=== PATIENT | female | born 1990 | race Caucasian/White ===

== ENCOUNTER 2022-12-05 07:20 | Outpatient (CLI) | payer OTHER, SELFPAY ==
--- NOTE | 2022-12-05 07:15 | CRLHL7_ITS ---
For Patients: As a result of the Century Cures Act, medical imaging exams and procedure reports are released immediately into your electronic medical record. You may view this report before your referring provider. If you have questions, please contact your health care provider. INDICATION: First trimester scan, establish dates. COMPARISON: None. TECHNIQUE: Real-time fuller-scale imaging of the pelvis was performed. FINDINGS: Sonographic imaging demonstrates a single living intrauterine gestation. The embryo demonstrates a regular cardiac rate measuring 171 beats per minute. The embryo`s crown-rump length measurement of 4.4 cm corresponds to a gestational age of 11 weeks 1 day with a sonographic due date of 06/25/2023. There is a normal-appearing yolk sac. There are no gross abnormalities noted within the embryo at this early state of development. The gestational sac has a normal appearance. There is a left fundal perigestational hemorrhage measuring 2.1 x 1.5 x 1.1 cm. The amount of fluid within the sac appears appropriate for gestational age. The cervix is closed. The myometrium appears normal. The ovaries are of normal size. Corpus luteal cyst right ovary. There are no suspicious fluid collections noted in the cul-de-sac. IMPRESSION: Single living intrauterine with sonographic gestational age 11 weeks 1 day and sonographic due date 06/25/2023. Left fundal subchorionic hemorrhage measuring 2.1 x 1.5 x 1.1 cm. Dictated by Tono Awad MD @ 12/05/2022 9:52:48 AM (Electronically Signed)
== END 2022-12-05 07:21 | disposition home or self-care (01) ==
LOC: US 07:20
PROVIDERS: Visit Provider Physician Assistant
DX: Z34.91 Encounter for supervision of normal pregnancy, unspecified, first trimester (principal); Z3A.11 11 weeks gestation of pregnancy
CPT/HCPCS: 76801; 86703; 86803; 86850; 86900; 86901; 87086; 87340; 87491; 87591

== ENCOUNTER 2022-12-05 08:20 | Outpatient (CLI) | payer OTHER, SELFPAY ==
[2022-12-05 12:18] LABS: Chlamydia DNA Amplified* NOT DETECTED (No Detected); GC DNA Amplified* NOT DETECTED (No Detected)
== END 2022-12-05 08:21 | disposition home or self-care (01) ==
PROVIDERS: Visit Provider Physician Assistant
DX: Z34.91 Encounter for supervision of normal pregnancy, unspecified, first trimester (principal); O20.9 Hemorrhage in early pregnancy, unspecified; Z3A.11 11 weeks gestation of pregnancy
CPT/HCPCS: 86592; 86703; 86762; 86787; 86803; 86850; 86900; 86901; 87086; 87340; 87491; 87591

== ENCOUNTER 2023-02-06 06:59 | Outpatient (CLI) | payer OTHER, SELFPAY ==
--- NOTE | 2023-02-06 07:15 | CRLHL7_ITS ---
For Patients: As a result of the Century Cures Act, medical imaging exams and procedure reports are released immediately into your electronic medical record. You may view this report before your referring provider. If you have questions, please contact your health care provider. INDICATION: Evaluate anatomy. COMPARISON: 12/05/2022 TECHNIQUE: Real time fuller scale imaging of the fetus was performed as well as color Doppler analysis of the umbilical vessels. FINDINGS: Sonographic imaging demonstrates a single living intrauterine gestation. Fetus demonstrates a regular cardiac rate of 139 beats per minute. Fetus has a salty breech position. The placenta lies posteriorly without evidence of placenta previa. The head of the placenta is located 6.7 cm from the internal cervical os. Amniotic fluid volume appears normal. Single deepest vertical pocket: 4.7 cm. The cervix is closed and measures 4.2 cm in length. The composite ultrasound gestational age is calculated at 19 weeks 6 days with an estimated sonographic due date of 06/27/2023. The estimated weight is 311 grams which lies at the 19th %. The following biometric measurements were obtained: Biparietal diameter: 4.5 cm/19 weeks 4 days 20th% Head circumference: 17.0 cm/19 weeks 4 days 15th% Abdominal circumference: 14.7 cm/20 weeks 0 days 34th% Femur length: 3.1 cm/19 weeks 4 days 18th% The HC/AC ratio measures: 1.16 range (1.08-1.26) On anatomic survey, there is a normal appearance of the cerebral ventricles, cavum septi pellucidi, cisterna magna and cerebellum. The nose, lips, and facial profile appear normal. The cervical, thoracic and lumbar spine are well visualized and appear normal. Normal four-chamber heart and outflow tracts. Incomplete visualized three-vessel view and 3VTV. The diaphragm and stomach appear normal. The kidneys and bladder also appear normal. There is a normal three-vessel cord and cord insertion site. The four extremities appear normal. IMPRESSION: Concordance of clinical and sonographic dating. Incomplete visualization of the 3VV and 3VTV. Remainder of the anatomic survey is within normal limits. Short-term follow-up recommended. Dictated by oTno Awad MD @ 02/06/2023 9:15:38 AM (Electronically Signed)
== END 2023-02-06 07:00 | disposition home or self-care (01) ==
PROVIDERS: Visit Provider Physician Assistant
DX: Z34.92 Encounter for supervision of normal pregnancy, unspecified, second trimester (principal); Z3A.19 19 weeks gestation of pregnancy
CPT/HCPCS: 76805

== ENCOUNTER 2023-02-20 08:33 | Outpatient (CLI) | payer OTHER, SELFPAY ==
--- NOTE | 2023-02-20 08:45 | CRLHL7_ITS ---
For Patients: As a result of the Century Cures Act, medical imaging exams and procedure reports are released immediately into your electronic medical record. You may view this report before your referring provider. If you have questions, please contact your health care provider. INDICATION: Second-trimester anatomical survey follow-up. TECHNIQUE: Ultrasound OB pelvis transabdominal. Real-time fuller-scale imaging of the fetus was performed as well as color Doppler and spectral Doppler analysis of the umbilical artery. COMPARISON: February 06, 2023. FINDINGS: Intrauterine gestation: Present. cardiac activity: 147 BPM. Presentation: Breech. Placenta: Posterior. Amniotic fluid volume: Normal with the deepest pocket of 3.8 cm. Cervix: Not measured. anatomy: Normal four-chamber heart, right ventricular outflow tract, and left ventricular outflow tract visualized on today`s exam. IMPRESSION.: Viable intrauterine . Normal views of the four-chamber heart as well as the right and left ventricular outflow tracts. No abnormalities evident. Dictated by Walker Morales MD @ 02/22/2023 7:48:32 AM (Electronically Signed)
== END 2023-02-20 08:34 | disposition home or self-care (01) ==
LOC: US 08:34
PROVIDERS: Visit Provider Advanced Practice Midwife
DX: Z34.92 Encounter for supervision of normal pregnancy, unspecified, second trimester (principal)
CPT/HCPCS: 76816

== ENCOUNTER 2023-04-03 09:28 | Outpatient (CLI) | payer OTHER, SELFPAY | END 2023-04-03 09:29 | disposition home or self-care (01) | LOC: NFLDREF 04-08 06:39 | PROVIDERS: Visit Provider Registered Nurse | DX: Z34.93 Encounter for supervision of normal pregnancy, unspecified, third trimester (principal); Z3A.28 28 weeks gestation of pregnancy | CPT/HCPCS: 86592 ==

== ENCOUNTER 2023-05-30 09:15 | Outpatient (CLI) | payer OTHER, SELFPAY ==
[2023-05-31 12:14] LABS: Strep B DNA Probe Negative (Negative)
[2023-05-31 12:42] LABS: Strep B Susceptibility Needed? No
== END 2023-05-30 09:16 | disposition home or self-care (01) ==
LOC: NFLDREF 09:19
PROVIDERS: Visit Provider Advanced Practice Midwife
DX: Z34.93 Encounter for supervision of normal pregnancy, unspecified, third trimester (principal)
CPT/HCPCS: 87081; 87653

== ENCOUNTER 2023-06-28 09:15 | Inpatient (IN) | payer OTHER, SELFPAY ==
[2023-06-28] VITALS (43 sets, daily range): BP systolic 85–131; BP diastolic 51–85; PULSE 83–122; RESP 16–17; TEMP 36.6–36.8; O2SAT 97–99; BMI 33.4
[2023-06-28] MEDS: LACTATED RINGERS 1000 ML 1,000 ML 125 ML IV ×2 (10:43→12:00)
[2023-06-28] MEDS: ROPIVACAINE 0.2 % PF 10 ML INJ 20 MG EPIDURAL (11:30)
[2023-06-28] MEDS: ROPIVACAINE 0.2% 100 ml 100 ML 12 MG EPIDURAL (11:38)
[2023-06-28] MEDS: LIDOCAINE 2% (PF) 5 ML VIAL EPIDURAL (11:38)
--- NOTE | 2023-06-28 11:38 | P.ANBPRC_ITS ---
[facility] Medical History Normal spontaneous vaginal delivery ?O80 - Encounter for full-term uncomplicated delivery (ICD-10) Surgical History History of tonsillectomy (2010) ?Z90.89 - Acquired absence of other organs (ICD-10) History of wisdom tooth extraction (2019) ?K08.409 - Partial loss of teeth, unspecified cause, unspecified class (ICD- 10) Family History Aunt Breast cancer Mother Vulvar cancer Father Family history of blood clots Prostate cancer Social History Narrative: History of blood transfusion: No. SOCIAL HISTORY: Occupation: [employer] mom. Marital status: . Jainism/cultural needs: no. Chemical or radiation exposure: no. Pre- tobacco use: no. Pre- alcohol use: 1 per day. Current tobacco use: no. Current alcohol use: no. Recreational drug use: no. Dietary restrictions: no. Blood transfusion acceptable in an emergency: yes. FAMILY AND GENETIC HISTORY: See problem list. No history of heritable diseases or defects PSYCHOSOCIAL HISTORY: History of depression or currently depressed: no. Current or past physical, emotional, or sexual mistreatment: no. Problems that will make it hard to make it to appointments: no. What is your current living situation?: I presently have a place to live Problems where you live: no known problems In the past 12 months, utilities in danger of being shut off: no In past 12 months, lack of transportation kept you from medical appts, meetings, work, or getting things needed for daily living: no How hard is it for you to pay for the very basics like food, housing, medical care, and heating: not very hard In the past 12 mos, have been you worried that your food would run out before you had money to buy more?: never true In the past 12 mos, the food you bought just didn't last and you didn't have money to buy more?: never true Smoking Status: Never smoker How often does anyone, including family, friends and others, physically hurt you : never How often does anyone, including family, friends and others, insult or talk down to you: never How often does anyone, including family, friends and others, threaten you with harm: never How often does anyone, including family, friends and others, scream or curse at you: never Little interest or pleasure in doing things: not at all Feeling down, depressed, or hopeless: not at all Meds Home Medications and Allergies Home Medications Medication Instructions Recorded Confirmed Type docosahexaenoic acid 200 mg 200 mg PO DAILY pregancy 12/05/22 06/28/23 History capsule ( DHA) cholecalciferol (vitamin D3) 125 125 mcg PO QDAY 04/03/23 06/28/23 History mcg (5,000 unit) capsule Allergies Allergy/AdvReac Type Severity Reaction Status Date / Time No Known Drug Allergies Allergy Verified 06/28/23 09:12 Results Vital Signs Vital Signs: Last Vital Signs Pulse 107 H 06/28/23 11:38 BP 108/62 06/28/23 11:38 Pulse Ox 98 06/28/23 11:34 Weight: 85.638 kg Height: 160.02 cm Anesthesia Procedures Epidural Insertion Patient Location: OB Start Time: 10:50 Stop Time: 11:39 Start Date: 06/28/23 Stop Date: 06/28/23 Reason for Block: procedure for pain Patient Position: sitting Performed By: Wyatt Craig Preanesthetic Checklist: IV checked, risks and benefits discussed, surgical consent, monitors and equipment checked, pre-op evaluation, timeout performed and anesthesia consent Prep: chlorhexidine gluconate Monitoring: blood pressure monitoring, continuous pulse oximetry and heart rate Approach: midline Vertebral Space: lumbar (1-5) Epidural Technique: EDER air Needle Type: Tuohy needle Injection Technique: continuous catheter Needle gauge: 17 Needle Length (cm): 10 cm Needle Insertion Depth (cm): 7 Catheter Gauge: 19 Catheter Type: multi-orifice Catheter at skin depth (cm): 13 Test Dose Result: negative and lidocaine 1.5% with epinephrine 1 to 200,000
[2023-06-28] MEDS: PHENYLEPHRINE 100 MCG/ML SYRINGE IVP (12:02)
--- NOTE | 2023-06-28 12:50 | W.PM.LDBA ---
Subjective History of Present Illness Time Seen by Provider: 12:30 Date Seen: 06/28/23 Narrative: Delicia is a 33 yo at 40.4 weeks being admitted to Labor and Delivery for spontaneous onset of labor. She reports labor started last evening but got more intense this morning. She is coping well. She is now comfortable with an epidural. She is supported in labor by her . H&P was done on 06/05/2023 by JAY Hare. Please see this for details. Specific Issues/Plans H&P 06/05/23 by Christie Hamlin CNM 1. Lost her mother to vulvar cancer 2 months ago before 2. Incomplete cardiac views on anatomy scan, WNL on follow up. Flu shot: declines COVID: Not vaccinated, declines Tdap: declined 05/30/23 OB - Problem Based A/P Additional Plan (1) Spontaneous onset of labor: Status: Acute (2) Pain during labor: Status: Acute (3) 40 weeks gestation of : Status: Acute Plan ASSESSMENT:? 33 at 40.4 weeks gestation? complicated by:? Labor type: Spontaneous, Active labor? Category 1 FHR pattern.?? Labor complicated by: none? GBS negative? ? PLAN:? 1. Routine intrapartum cares as ordered. Continue with expectant management. Discussed AROM, done with consent. Clear fluid. 2. Monitoring per policy, continuous with epidural.? 3. Candidate for analgesia of choice when desired. Patient recently received epidural and is comfortable currently. 4. Patient encouraged to reposition and ambulate to promote physiologic labor and .? 5. Anticipate ? Delivery/Labor/Induction Plan Plan: expectant management (AROM'd for augmentation of labor per discussion with patient.) OB Exam Physical Exam Vital signs: Temp Pulse Resp BP Pulse Ox O2 Del Method 98.2 F 71 16 106/73 96 Room Air 06/29/23 13:43 06/29/23 13:43 06/29/23 13:43 06/29/23 13:43 06/29/23 13:43 06/29/23 13:43 Narrative: Vitals Reviewed Constitutional:? Alert and oriented x3 HEENT:? Normocephalic, atraumatic Neck:? Supple Lungs:? Clear to auscultation bilaterally Heart:? Regular rate and rhythm, no murmur, rub or gallop Abdomen:? Soft, nontender, and gravid. Vertex by Michael's, confirmed with cervical exam. Extremities:? No edema or erythema Cervix: 8 cm/70 %/-1 station/vertex NST: 130 bpm/moderate variability/15x15 accelerations/no decelerations/contractions every 3-4 minutes Detailed Labor and Delivery Exam Patient Gravid: Yes
[2023-06-28] MEDS: OXYTOCIN 30 unit/500 ML in NS 30 UNIT/500 ML BAG 300 UNIT IVPB (13:30)
--- NOTE | 2023-06-28 13:46 | W.PM.VAGDE_ITS ---
OB Procedure Vag Delivery Mother Details Mother Details: The patient is a 32 year-old, 5, now Para 4014, admitted on 06/28/23 at 40.4 weeks gestation. : 5 Para: 4 Weeks Gestation: 40.4 Admission Date: 06/28/23 Additional Details Amniotic Membrane Status: AROM Amniotic Membrane Rupture Date: 06/28/23 Amniotic Membrane Rupture Time: 12:31 Amniotic Membrane Fluid Description: Clear Analgesia/Anesthesia Type: Epidural Waterbirth: No Pitcoin: Yes ([facility] only) Labor Onset: 08:45 Complete: 13:10 Pushin:12 Heart: heart tones during second stage were category I, reassuring. Delivery Details Delivery Date: 06/28/23 Delivery Time: 13:22 Route of delivery: Infant Gender: Female Infant Viability: Alive; Heart Rate Present Position at Delivery: OA Delivery Details: Patient was admitted for spontaneous onset of labor and progressed normally. A ROM noted at 1231 with clear fluid. Patient was complete at 1310 and pushing at 1312. of a viable female at 1322 in semi fowlers on the bed. Vertex delivered OA. No nuchal cord or shoulder. Body delivered easily and without incident. passed to mothers abdomen with a vigorous cry. Cord was clamped and cut at > 5 minutes. APGARS were 8 at one minute and 9 at five minutes respectively. Mouth was bulb suctioned. Intact placenta with a 3 vessel cord delivered spontaneously at 1334. Fundus firm. Intact perineum identified. QBL 200 cc. Mother and baby stable; mother plans to breastfeed. Infant weight pending. 1 Minute Interval Total Score: 8 5 Minute Interval Total Score: 9 Additional Details Shoulder Dystocia: No Placenta Delivery Time: 13:34 Placental Delivery Description: Spontaneous Procedure Done: Global Blood Loss: 200 Laceration: None Blood Loss Measurement Type: QBL Bakri Used: No Sponge/Need Count Correct: Yes Cord Vessel Description: 3 Vessels Event Summary Status: Mother and were stable after delivery. Disposition: floor
[2023-06-28] MEDS: IBUPROFEN 600 MG TABLET PO (19:49)
[2023-06-29 00:14] VITALS: BP 106/72; PULSE 70; RESP 16; TEMP 36.3; O2SAT 97
[2023-06-29 04:19] VITALS: BP 93/63; PULSE 71; RESP 16; TEMP 36.6; O2SAT 96
[2023-06-29] MEDS: IBUPROFEN 600 MG TABLET PO (04:23)
[2023-06-29] MEDS: DOCUSATE SODIUM 100 MG CAPSULE PO (07:45)
[2023-06-29 07:47] VITALS: BP 103/70; PULSE 71; RESP 16; TEMP 36.3; O2SAT 97
--- NOTE | 2023-06-29 09:02 | PM.OBDSVD1 ---
DS: Providers Provider Date Seen: 06/29/23 Date of admission: 06/28/23 09:15 Primary care physician: Not a Local Provider Admitting Clinician: Sangeeta Noble CNM Attending Physician on discharge: Sangeeta Noble CNM Date of Discharge: 06/29/23 DS: Diagnosis Discharge Diagnosis (1) Lactating mother: Status: Acute (2) care following vaginal delivery: Status: Acute Exam Narrative: Exam Narrative: GENERAL APPEARANCE:? normal affect, alert, no distress? MOOD:? appropriate? CHEST:? clear to auscultation and percussion? HEART:? regular rate and rhythm? ABDOMEN:? soft, non-tender the uterine fundus is 2 cm Below Umbilicus, Midline and is appropriate for the stage of recovery. ? PERINEUM:? mild edema of the perineum, there is a intact perineum that is healing well.? EXTREMITIES:? normal and no edema? Patient has no complaints? No active bleeding?? Doing well? She is requesting discharge home.? Const: Vital Signs, click to edit/add: Vital Signs - 24 hr 06/28/23 10:57 06/28/23 11:19 06/28/23 11:24 Temperature Pulse Rate 93 Pulse Rate [Pulse Oximeter] Respiratory Rate Blood Pressure 112/72 Blood Pressure [Ri ght Arm] Pulse [facility]ximetry 97 [facility] 11:29 06/28/23 11:34 06/28/23 11:38 Temperature Pulse Rate 107 H Pulse Rate [Pulse Oximeter] Respiratory Rate Blood Pressure 108/62 Blood Pressure [Ri ght Arm] Pulse Oximetry 98 98 [facility] 11:39 06/28/23 11:40 06/28/23 11:43 Temperature Pulse Rate 100 98 Pulse Rate [Pulse Oximeter] Respiratory Rate Blood Pressure 104/58 L 103/58 L Blood Pressure [Ri ght Arm] Pulse Oximetry 99 [facility] 11:44 06/28/23 11:47 06/28/23 11:49 Temperature Pulse Rate 101 H 100 Pulse Rate [Pulse Oximeter] Respiratory Rate Blood Pressure 97/57 L 98/54 L Blood Pressure [Ri ght Arm] Pulse Oximetry 97 [facility] 11:53 06/28/23 11:55 06/28/23 11:58 Temperature Pulse Rate 98 96 105 H Pulse Rate [Pulse Oximeter] Respiratory Rate Blood Pressure 95/53 L 95/54 L 96/52 L Blood Pressure [Ri ght Arm] Pulse Oximetry Oxygen Delivery [facility] 06/28/23 12:01 06/28/23 12:02 06/28/23 12:04 Temperature Pulse Rate 96 93 102 H Pulse Rate [Pulse Oximeter] Respiratory Rate Blood Pressure 85/51 L 90/52 L 92/51 L Blood Pressure [Ri ght Arm] Pulse Oximetry Oxygen Delivery [facility] 06/28/23 12:08 06/28/23 12:10 06/28/23 12:14 Temperature Pulse Rate 93 99 91 Pulse Rate [Pulse Oximeter] Respiratory Rate Blood Pressure 106/68 103/64 114/68 Blood Pressure [Ri ght Arm] Pulse Oximetry Oxygen Delivery [facility] 06/28/23 12:17 06/28/23 12:34 06/28/23 12:38 Temperature 98.2 F Pulse Rate 97 100 Pulse Rate [Pulse Oximeter] Respiratory Rate 17 Blood Pressure 115/68 97/52 L Blood Pressure [Ri ght Arm] Pulse Oximetry Oxygen Delivery [facility] 06/28/23 12:47 06/28/23 13:03 06/28/23 13:20 Temperature Pulse Rate 105 H 120 H 108 H Pulse Rate [Pulse Oximeter] Respiratory Rate Blood Pressure 98/54 L 131/85 123/79 Blood Pressure [Ri ght Arm] Pulse Oximetry Oxygen Delivery Al [facility] 06/28/23 13:32 06/28/23 13:37 06/28/23 13:47 Temperature Pulse Rate 96 116 H 97 Pulse Rate [Pulse Oximeter] Respiratory Rate Blood Pressure 109/70 109/74 100/67 Blood Pressure [Ri ght Arm] Pulse Oximetry Oxygen Delivery Al [facility] 06/28/23 14:02 06/28/23 14:17 06/28/23 14:32 Temperature Pulse Rate 92 90 89 Pulse Rate [Pulse Oximeter] Respiratory Rate Blood Pressure 107/75 109/75 107/70 Blood Pressure [Ri ght Arm] Pulse Oximetry Oxygen Delivery Al thod 06/28/23 14:47 06/28/23 15:01 06/28/23 15:02 Temperature 98.2 F Pulse Rate 88 88 Pulse Rate [Pulse Oximeter] Respiratory Rate 17 Blood Pressure 99/66 106/71 Blood Pressure [Ri ght Arm] Pulse Oximetry 97 Oxygen Delivery Me thod 06/28/23 15:16 06/28/23 15:17 06/28/23 15:27 Temperature 98.2 F Pulse Rate 83 88 Pulse Rate [Pulse Oximeter] Respiratory Rate 17 Blood Pressure 111/71 104/70 Blood Pressure [Ri ght Arm] Pulse Oximetry 97 Oxygen Delivery Me [facility] 06/28/23 15:30 06/28/23 15:48 06/28/23 19:52 Temperature 98.2 F 97.9 F Pulse Rate 89 Pulse Rate [Pulse Oximeter] 96 Respiratory Rate 17 16 Blood Pressure 103/64 Blood Pressure [Ri ght Arm] 104/71 Pulse Oximetry 97 97 Oxygen Delivery Me thod Room Air 06/29/23 00:14 06/29/23 04:19 06/29/23 07:47 Temperature 97.4 F L 98 F 97.4 F L Pulse Rate Pulse Rate [Pulse Oximeter] 70 71 71 Respiratory Rate 16 16 16 Blood Pressure Blood Pressure [Ri ght Arm] 106/72 93/63 103/70 Pulse Oximetry 97 96 97 Oxygen Delivery Me thod Room Air Room Air Room Air Documenting provider has reviewed patient's vital signs: yes OB - DS: Summary Hospital Course Hospital Course: The patient is a 32 year old G 5 P 4 at 40.4 weeks gestation that was admitted to the Center on 06/28/23 for active labor. She had an uncomplicated vaginal delivery. She delivered a viable female . She is breast feeding and states that it is going good. the patient has done well. Her pain is well controlled with current medications.? She has no new complaints.? Urinary output is adequate and she is voiding without difficulty.? Has a good appetite, is tolerating a general diet, is passing flatus, and has not had a bowel movement.? Has scant amount of rubra lochia.? She is ambulating well. She is plannin NFP and condoms for PP contraception. Peripartum Data Infant delivery method: Vaginal Laceration description: None Episiotomy description: None complications: none Gender: Female Discharge Plan: Home Status at Discharge Functional status at discharge: independent ambulation Overall status at discharge: patient is progressing back to baseline Time Spent with Patient Time attestation: Total time spent providing and/or coordinating discharge services: Discharge Plan Discharge Disposition: Home, Self-Care Date of Admission: 06/28/23 09:15 Attending Provider on Discharge: Latoya Hamlin Primary Care Provider: Provider,Not a Local Condition: Stable Anticipated Discharge Date/Time: 06/29/23 15:00 Discharge Medications: New docusate sodium 100 mg Capsule 100 mg PO DAILY Qty: 60 0RF Rx Instructions: Take 1-2 tablets daily as needed for constipation. ibuprofen 600 mg Tablet 600 mg PO Q6H PRNQty: 30 0RF Continued DHA 200 mg capsule 200 mg PO DAILY cholecalciferol (vitamin D3) 125 mcg (5,000 unit) capsule 125 mcg PO QDAY Discharge Orders: Discharge Order (Routine); Ordered 06/29/23 Ordered By: Latoya Hamlin Patient Education: OB Vaginal/Breast Feeding Additional Instructions: Discharge instructions were reviewed with the patient including signs and symptoms of infection and home going medications.? Lifting Restrictions: 20 pounds for 6? weeks? ?? Do not drive while taking narcotic pain meds.? Off Work or School for 6 weeks.? ?? Symptoms to report to doctor:? -Bleeding that saturates more than one pad per hour? -Passing clots larger than the size of a golf ball? -Pain not relieved by prescribed medication? -Fever above 100.4 degrees Fahrenheit? -A foul vaginal odor? -Difficulty in emotions, mood and functions? -Thoughts of hurting yourself and/or ? -Painful, reddened area in your breast? -Any drainage, redness or tenderness in your IV/epidural site? -Severe headache that doesn't improve after taking medications? -Changes in vision, including temporary loss of vision, blurred vision, and/or light sensitivity? -Upper abdominal pain (usually under ribs on the right side)? -Decrease in urination or painful, frequent urinating? -Chest pain? -Shortness of breath? -Tenderness or pain with redness and/swelling in the calf(s) of your leg? ?? Follow Up in clinic in 2 and 6 weeks.? ?? consultation services are available to all mothers and babies for the first year after delivery.? To make an appointment, please call [phone].? Activity Level: Activity as Tolerated Discharge Diet: Regular Follow Up Appointments: Provider,Not a Local [Primary Care Provider] - [facility] [Provider Group] Forms: MyHealth Info Instructions
[2023-06-29 13:43] VITALS: BP 106/73; PULSE 71; RESP 16; TEMP 36.8; O2SAT 96
== END 2023-06-29 17:00 | disposition home or self-care (01) | DRG 807 ==
LOC: OB OUT 09:25 → OB 09:25
PROVIDERS: Admitting Provider Advanced Practice Midwife; Visit Provider Advanced Practice Midwife
DX: O80 Encounter for full-term uncomplicated delivery (principal); Z37.0 Single live birth; Z3A.40 40 weeks gestation of pregnancy
CPT/HCPCS: 01967; A9270; J2371; J2795; J7120